=== PATIENT | male | born 1990 | race African-American/Black ===

== ENCOUNTER → 2021-02-11 | Outpatient (CLI) | payer OTHER ==
[~2021-02-11] MED LIST: Bactrim Ds Tab1 EACH PO; Doxycycline Hy100 MG PO; HIBICLENS120 ML EXT; HYDACE5 PO; METPRE4DP PO; ONDA4ODT MM; Ultram50 MG PO
== END | disposition home or self-care (01) ==
LOC: LAB SHORT 19:30 → LAB 19:30
DX: L03.114 Cellulitis of left upper limb (principal)
CPT/HCPCS: 87070; 87075; 87077; 87147; 87186; 87205

== ENCOUNTER 2024-09-15 17:08 | Emergency (ER) | payer OTHER ==
[~2024-09-15] VITALS: Ht 185.4 cm; Wt 131.5 kg
[2024-09-15] MEDS ORDERED: Acetaminophen 500 MG Tab PO ONE (17:25)
[2024-09-15] MEDS ORDERED: Ibuprofen 600 MG Tab PO ONE (17:25)
[2024-09-15] MEDS ORDERED: ACET500 PO (18:11)
[2024-09-15] MEDS ORDERED: IBUP600 PO (18:11)
[2024-09-15 18:17] VITALS: BP 152/103
== END 2024-09-15 18:19 | disposition home or self-care (01) ==
LOC: ER 17:08
DX: R07.89 Other chest pain (principal); R06.02 Shortness of breath; R20.0 Anesthesia of skin
CPT/HCPCS: 71046; 93005; 93010; 99285-25; A9270